=== PATIENT | female | born 1990 | race African-American/Black ===

== ENCOUNTER 2022-11-11 13:55 | Emergency (ER) | payer OTHER ==
[~2022-11-11] VITALS: Ht 170.2 cm; Wt 73.0 kg
[2022-11-11 14:21] VITALS: O2SAT 100
[2022-11-11] MEDS ORDERED: ACETAMINOPHEN 325MG TABLET PO ONE (14:45)
[2022-11-11] MEDS ORDERED: KETOROLAC 15MG/ML VIAL IV ONE (16:15)
[2022-11-11] MEDS ORDERED: ONDANSETRON HCL 4MG/2ML INJ IV ONE (16:15)
[2022-11-11 16:51] VITALS: BP 129/79; PULSE 88; RESP 17; TEMP 98.4
== END 2022-11-11 17:44 | disposition home or self-care (01) ==
LOC: ER 13:55
DX: S06.0X0A Concussion without loss of consciousness, initial encounter (principal); R51.9 Headache, unspecified; R11.10 Vomiting, unspecified; X58.XXXA Exposure to other specified factors, initial encounter; Y93.89 Activity, other specified; Y92.89 Other specified places as the place of occurrence of the external cause; Y99.8 Other external cause status
CPT/HCPCS: 70450; 96374; 96375; 99285; J1885; J2405; Z7610 ×3